=== PATIENT | male | born 2005 | race Asian ===

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

== ENCOUNTER 2024-04-02 09:01 | Outpatient (RCR) | payer MEDICAID, SELFPAY | END 2024-07-20 08:31 | disposition home or self-care (01) | PROVIDERS: Visit Provider Family Medicine | DX: M54.16 Radiculopathy, lumbar region (principal); M51.26 Other intervertebral disc displacement, lumbar region; M62.81 Muscle weakness (generalized); Z51.89 Encounter for other specified aftercare | CPT/HCPCS: 97110; 97140; 97161 ==